=== PATIENT | female | born 1995 | race Caucasian/White ===

== ENCOUNTER 2018-03-05 15:47 | Emergency (ER) | payer BC ==
[2018-03-05 15:58] VITALS: BP 129/69
--- NOTE | 2018-03-05 17:31 | ER Document Report ---
HPI - HPI Patient complains to provider of: UTI Time Seen by Provider: 03/05/18 17:19 Onset: Other - 3 days Quality of pain: Burning Pain Level: 4 Context: Patient presents complaining of urinary frequency, dysuria and urgency. Patient is concerned she has a UTI. Patient denies any vomiting, fever or back pain. No concern for STI. Associated Symptoms: Other - Dysuria. denies: Fever Exacerbated by: Denies Relieved by: Denies Similar symptoms previously: Yes Recently seen / treated by doctor: No - ROS ROS below otherwise negative: Yes Systems Reviewed and Negative: Yes All other systems reviewed and negative - CONSTITUTIONAL Constitutional: DENIES: Fever, Chills - GASTROINTESTINAL Gastrointestinal: DENIES: Abdominal Pain, Nausea, Patient vomiting - URINARY Urinary: REPORTS: Dysuria, Urgency, Frequency - REPRODUCTIVE Reproductive: DENIES: : - MUSCULOSKELETAL Musculoskeletal: DENIES: Back Pain - DERM Skin Color: Normal Skin Problems: None Past Medical History - General Information source: Patient - Social History Smoking Status: Never Smoker Frequency of alcohol use: None Drug Abuse: None Occupation: Daycare worker Family History: Reviewed & Not Pertinent - Medical History Medical History: Negative Past Surgical History: Reports: Hx Gynecologic Surgery Vertical Provider Document - CONSTITUTIONAL Agree With Documented VS: Yes Exam Limitations: No Limitations General Appearance: WD/WN, No Apparent Distress - INFECTION CONTROL TRAVEL OUTSIDE OF THE [place] IN LAST 30 DAYS: No - HEENT HEENT: Atraumatic, Normocephalic - NECK Neck: Normal Inspection - RESPIRATORY Respiratory: Breath Sounds Normal, No Respiratory Distress - CARDIOVASCULAR Cardiovascular: Regular Rate, Regular Rhythm - GI/ABDOMEN Gastrointestinal: Abdomen Soft, Abdomen Non-Tender, No Organomegaly - BACK Back: Normal Inspection. negative: CVA Tenderness-Right, CVA Tenderness-Left - MUSCULOSKELETAL/EXTREMETIES Musculoskeletal/Extremeties: [place] DELIA OLEA - NEURO Level of Consciousness: Awake, Alert, Appropriate Motor/Sensory: No Motor Deficit - DERM Integumentary: Warm, Dry, No Rash Course - Vital Signs Vital signs: Temp Pulse Resp BP Pulse Ox 97.9 F 62 18 129/69 H 99 03/05/18 15:57 03/05/18 15:57 03/05/18 15:57 03/05/18 15:57 03/05/18 15:57 Discharge - Discharge Clinical Impression: UTI (urinary tract infection) Qualifiers: Urinary tract infection type: site unspecified Hematuria presence: with hematuria Qualified Code(s): N39.0 - Urinary tract infection, site not specified Condition: Stable Disposition: HOME, SELF-CARE Instructions: Trimethoprim-Sulfa ([facility]), Urinary Anesthetic Agent ([facility]), Urinary Tract Infection ([facility]) Additional Instructions: Return immediately for any new or worsening symptoms Followup with your primary care provider, call tomorrow to make a followup appointment Prescriptions: Phenazopyridine HCl [Pyridium 200 mg Tablet] 200 mg PO TID #15 tablet Sulfamethoxazole/Trimethoprim [Bactrim Ds Tablet] 1 each PO BID #14 tablet Forms: Return to Work Referrals: [facility] [Provider Group] - Follow up as needed
[2018-03-05 17:52] LABS: APPEARANCE,URINE SLIGHTLY-CLOUDY; BILIRUBIN,URINE NEGATIVE (NEGATIVE); COLOR,URINE STRAW; GLUCOSE, URINE NEGATIVE (NEGATIVE); KETONES,URINE NEGATIVE (NEGATIVE); LEUKOCYTE ESTERASE,URINE MODERATE (NEGATIVE); NITRITE,URINE NEGATIVE (NEGATIVE); PROTEIN,URINE NEGATIVE (NEGATIVE); URINE SPECIFIC GRAVITY 1.004; UROBILINOGEN,URINE NEGATIVE mg/dL (<2.0)
[2018-03-05] MEDS ORDERED: SULFAMETHOXAZOLE/TRIMETHOPRIM 800-160 MG TABLET PO ONE (17:53)
[2018-03-05] MEDS ORDERED: PHENAZOPYRIDINE HCL 200 MG TABLET PO ONE (17:53)
== END 2018-03-05 18:17 | disposition home or self-care (01) ==
LOC: ER 15:47
DX: N39.0 Urinary tract infection, site not specified (principal)
CPT/HCPCS: 99283; 87086; 87088; 81001; 87186; J3490

== ENCOUNTER 2019-04-03 16:22 | Emergency (ER) | payer BC ==
--- NOTE | 2019-04-03 18:25 | ER Document Report ---
ED Medical Screen (RME) - General Chief Complaint: Pain With Urination Stated Complaint: PAINFUL URINATION,URGENCY Time Seen by Provider: 04/03/19 18:08 Notes: HPI: 23-year-old female presenting with 3 to 4 weeks of dysuria. Has had occasional chills no definite fever. Occasional nausea no definite vomiting. Patient used a telemedicine physician and was placed on antibiotics 3 weeks ago. States symptoms did not improve, believe that she might of had a yeast infection using [id number] antifungal without improvement. Still with some dysuria. Denies pelvic pain. States did have some abnormal vaginal bleeding last week no bleeding currently I have greeted and performed a rapid initial assessment of this patient. A comprehensive ED assessment and evaluation of the patient, analysis of test results and completion of the medical decision making process will be conducted by additional ED providers PHYSICAL EXAMINATION: GENERAL: Well-appearing, well-nourished and in no acute distress. HEAD: Atraumatic, normocephalic. EYES: sclera anicteric, conjunctiva are normal. ENT: Moist mucous membranes. NECK: Normal range of motion LUNGS: Normal work of breathing, clear to auscultation HEART: 2+ radial pulses bilaterally, regular rate and rhythm ABD: limited by positioning for exam in triage. EXTREMITIES: no pitting or edema. No cyanosis. NEUROLOGICAL: No focal neurological deficits. Moves all extremities spontaneously and on command. PSYCH: Normal mood, normal affect. SKIN: Warm, Dry, normal turgor, no rashes or lesions noted. TRAVEL OUTSIDE OF THE [place] IN LAST 30 DAYS: No - Related Data Allergies/Adverse Reactions: amoxicillin Allergy (Verified 03/05/18 15:50) Past Medical History - Social History Frequency of alcohol use: None Drug Abuse: None Renal/ Medical History: Denies: Hx Peritoneal Dialysis Past Surgical History: Reports: Hx Gynecologic Surgery Physical Exam - Vital signs Vitals: Temp Pulse Resp BP Pulse Ox 98.4 F 58 L 16 126/65 H 99 04/03/19 17:21 04/03/19 17:21 04/03/19 17:21 04/03/19 17:21 04/03/19 17:21 Course - Vital Signs Vital signs: Temp Pulse Resp BP Pulse Ox 98.4 F 58 L 16 126/65 H 99 04/03/19 17:21 04/03/19 17:21 04/03/19 17:21 04/03/19 17:21 04/03/19 17:21
[2019-04-03 19:10] LABS: APPEARANCE,URINE CLEAR; BILIRUBIN,URINE NEGATIVE (NEGATIVE); COLOR,URINE YELLOW; GLUCOSE, URINE NEGATIVE (NEGATIVE); KETONES,URINE NEGATIVE (NEGATIVE); LEUKOCYTE ESTERASE,URINE MODERATE (NEGATIVE); NITRITE,URINE NEGATIVE (NEGATIVE); PROTEIN,URINE NEGATIVE (NEGATIVE); URINE SPECIFIC GRAVITY 1.016; UROBILINOGEN,URINE NEGATIVE mg/dL (<2.0)
[2019-04-03] MEDS ORDERED: CIPROFLOXACIN HCL 500 MG TABLET PO ONE (19:32)
--- NOTE | 2019-04-03 19:35 | ER Document Report ---
HPI - HPI Time Seen by Provider: 04/03/19 18:08 Pain Level: 0 Notes: Please see RME note for history and physical. 23-year-old female with urinary symptoms over the last month and finished a course of antibiotics. Denies vaginal discharge. Urine shows probable UTI, she does not know the name of the antibiotic she was on previously will place her on Cipro at this time add urine culture, have her follow-up with PCP - CONSTITUTIONAL Constitutional: REPORTS: Chills. DENIES: Fever - URINARY Urinary: REPORTS: Urgency - REPRODUCTIVE Reproductive: DENIES: : Past Medical History - Social History Smoking Status: Never Smoker Frequency of alcohol use: None Drug Abuse: None Family History: Reviewed & Not Pertinent Patient has suicidal ideation: No Patient has homicidal ideation: No Renal/ Medical History: Denies: Hx Peritoneal Dialysis Past Surgical History: Reports: Hx Gynecologic Surgery Vertical Provider Document - INFECTION CONTROL TRAVEL OUTSIDE OF THE [place] IN LAST 30 DAYS: No Course - Vital Signs Vital signs: Temp Pulse Resp BP Pulse Ox 98.4 F 58 L 16 126/65 H 99 04/03/19 17:21 04/03/19 17:21 04/03/19 17:21 04/03/19 17:21 04/03/19 17:21 - Laboratory Laboratory results interpreted by me: 04/03/19 18:30 Ur Leukocyte Esterase MODERATE H Discharge - Discharge Clinical Impression: UTI (urinary tract infection) Qualifiers: Urinary tract infection type: acute cystitis Hematuria presence: without hematuria Qualified Code(s): N30.00 - Acute cystitis without hematuria Condition: Stable Disposition: HOME, SELF-CARE Additional Instructions: Take the antibiotics as prescribed. Urine result suggests a urinary infection that perhaps was not completely treated. Urine culture has been added to ensure that you are on the correct antibiotic this time. Follow-up closely with her primary care provider for reevaluation Prescriptions: Ciprofloxacin HCl [Cipro 500 mg Tablet] 500 mg PO BID #20 tablet Phenazopyridine HCl [Pyridium 100 Mg Tablet] 100 mg PO TID #9 tablet Referrals: LISA BURNHAM MD [ACTIVE STAFF] - Follow up as needed
[2019-04-03 20:42] VITALS: BP 129/71
== END 2019-04-03 20:42 | disposition home or self-care (01) ==
LOC: ER 16:22
DX: N30.00 Acute cystitis without hematuria (principal); R68.83 Chills (without fever); R39.15 Urgency of urination
CPT/HCPCS: 81001; 81025; 87086; 87088; 99283

== ENCOUNTER 2019-06-06 13:57 | Emergency (ER) | payer SELFPAY ==
[2019-06-06 14:06] VITALS: BP 145/66
--- NOTE | 2019-06-06 14:14 | ER Document Report ---
HPI - HPI Patient complains to provider of: uti Onset/Duration: Gradual Quality of pain: Burning Pain Level: 1 Context: Patient presents complaining of frequency and dysuria for the past 4 days. Patient denies any fever, nausea vomiting or back pain. Patient denies any abdominal discomfort. Patient does state that she had recently been treated for an STD and prior to her symptoms started she did have intercourse with the person that she suspects may have given her gonorrhea. Patient would like to be screened again for this infection. Associated Symptoms: Other - Dysuria, frequency. denies: Fever, Nausea, Vomiting Exacerbated by: Denies Relieved by: Denies Similar symptoms previously: Yes Recently seen / treated by doctor: No - ROS ROS below otherwise negative: Yes Systems Reviewed and Negative: Yes All other systems reviewed and negative - CONSTITUTIONAL Constitutional: DENIES: Fever, Chills - RESPIRATORY Respiratory: DENIES: Coughing - GASTROINTESTINAL Gastrointestinal: DENIES: Abdominal Pain, Nausea - URINARY Urinary: REPORTS: Dysuria, Frequency - REPRODUCTIVE Reproductive: DENIES: :, Abnormal bleeding / discharge - MUSCULOSKELETAL Musculoskeletal: DENIES: Back Pain - DERM Skin Color: Normal Skin Problems: None Past Medical History - General Information source: Patient - Social History Smoking Status: Never Smoker Frequency of alcohol use: Occasional Drug Abuse: None Occupation: Design Supervisor Family History: Reviewed & Not Pertinent - Medical History Medical History: Negative Renal/ Medical History: Denies: Hx Peritoneal Dialysis Past Surgical History: Reports: Hx Gynecologic Surgery Vertical Provider Document - CONSTITUTIONAL Agree With Documented VS: Yes Exam Limitations: No Limitations General Appearance: WD/WN, No Apparent Distress - INFECTION CONTROL TRAVEL OUTSIDE OF THE [place] IN LAST 30 DAYS: No - HEENT HEENT: Atraumatic, Normocephalic - NECK Neck: Normal Inspection, Supple - RESPIRATORY Respiratory: Breath Sounds Normal, No Respiratory Distress - CARDIOVASCULAR Cardiovascular: Regular Rate, Regular Rhythm - GI/ABDOMEN Gastrointestinal: Abdomen Soft, Abdomen Non-Tender - BACK Back: Normal Inspection. negative: CVA Tenderness-Right, CVA Tenderness-Left - MUSCULOSKELETAL/EXTREMETIES Musculoskeletal/Extremeties: MAEW, FROM - NEURO Level of Consciousness: Awake, Alert, Appropriate Motor/Sensory: No Motor Deficit - DERM Integumentary: Warm, Dry, No Rash Course - Re-evaluation Re-evalutation: 06/06/19 15:27 Will treat for UTI, patient empirically treated for STD at this time. No concern for pyelonephritis or sepsis at this time. Good return precautions discussed with patient. Patient verbalized understanding is agreeable with discharge plan of care. - Vital Signs Vital signs: Temp Pulse Resp BP Pulse Ox 99.2 F 70 18 145/66 H 98 06/06/19 14:05 06/06/19 14:05 06/06/19 14:05 06/06/19 14:05 06/06/19 14:05 - Laboratory Laboratory results interpreted by me: 06/06/19 15:26 Labs- Entire Visit 06/06/19 14:20 Urine Color ANUSHA Urine Appearance CLEAR Urine pH 6.0 Ur Specific [place] 1.005 Urine Protein NEGATIVE Urine Glucose (UA) NEGATIVE Urine Ketones NEGATIVE Urine Blood MODERATE H Urine Nitrite POSITIVE H Urine Bilirubin NEGATIVE Urine Urobilinogen 4.0 H Ur Leukocyte Esterase NEGATIVE Urine WBC (Auto) 2 Urine RBC (Auto) 6 Squamous Epi Cells Auto <1 Urine Mucus (Auto) RARE Urine Ascorbic Acid NEGATIVE Discharge - Discharge Clinical Impression: Concern about STD in female without diagnosis UTI (urinary tract infection) Qualifiers: Urinary tract infection type: site unspecified Hematuria presence: with hematuria Qualified Code(s): N39.0 - Urinary tract infection, site not specified Condition: Stable Disposition: HOME, SELF-CARE Instructions: Trimethoprim-Sulfa ([facility]), Urinary Anesthetic Agent ([facility]), Urinary Tract Infection ([facility]) Additional Instructions: Return immediately for any new or worsening symptoms Followup with your primary care provider, call tomorrow to make a followup appointment Prescriptions: Sulfamethoxazole/Trimethoprim [Bactrim Ds Tablet] 1 each PO BID #14 tablet Phenazopyridine HCl [Pyridium 200 mg Tablet] 200 mg PO TID #15 tablet Referrals: [facility] [Provider Group] - Follow up as needed [facility] [Provider Group] - Follow up as needed
[2019-06-06] MEDS ORDERED: AZITHROMYCIN 250 MG TABLET PO ONE (14:18)
[2019-06-06] MEDS ORDERED: CEFTRIAXONE INJ 250 MG VIAL IM ONE (14:18)
[2019-06-06] MEDS ORDERED: LIDOCAINE 1% INJ (10 MG/ML) 10 ML MDV INJ ONE (14:18)
[2019-06-06 14:43] LABS: APPEARANCE,URINE CLEAR; BILIRUBIN,URINE NEGATIVE (NEGATIVE); COLOR,URINE AMBER; GLUCOSE, URINE NEGATIVE (NEGATIVE); KETONES,URINE NEGATIVE (NEGATIVE); LEUKOCYTE ESTERASE,URINE NEGATIVE (NEGATIVE); NITRITE,URINE POSITIVE (NEGATIVE); PROTEIN,URINE NEGATIVE (NEGATIVE); URINE SPECIFIC GRAVITY 1.005
[2019-06-06 16:11] LABS: CHLAM PCR DETECTED (NOT DETECT)
== END 2019-06-06 15:41 | disposition home or self-care (01) ==
LOC: ER 13:57
DX: N39.0 Urinary tract infection, site not specified (principal); R31.9 Hematuria, unspecified; Z20.2 Contact with and (suspected) exposure to infections with a predominantly sexual mode of transmission
CPT/HCPCS: 99283; 96372; 87086; 81001; 87491; 87591; J0696

== ENCOUNTER 2019-11-28 16:10 | Emergency (ER) | payer BC ==
[2019-11-28 16:23] VITALS: BP 127/75
--- NOTE | 2019-11-28 16:51 | ER Document Report ---
HPI - HPI Time Seen by Provider: 11/28/19 16:33 Pain Level: Denies Notes: 24-year-old female patient presents the emergency department for evaluation of a rash. Patient reports the rash has been present for 2 weeks. She states it started on her shoulder. She states that then spread to her entire body. Sometimes it is itchy. It is not painful. She has never had this rash before. She denies the use of any new products. - ROS Systems Reviewed and Negative: Yes All other systems reviewed and negative - REPRODUCTIVE Reproductive: DENIES: : - DERM Skin Problems: Rash Past Medical History - Social History Smoking Status: Never Smoker Chew tobacco use (# tins/day): No Frequency of alcohol use: Occasional Drug Abuse: None Family History: Reviewed & Not Pertinent Renal/ Medical History: Denies: Hx Peritoneal Dialysis Past Surgical History: Reports: Hx Gynecologic Surgery Vertical Provider Document - CONSTITUTIONAL Notes: PHYSICAL EXAMINATION: GENERAL: Well-appearing, well-nourished and in no acute distress. HEAD: Atraumatic, normocephalic. EYES: Pupils equal round extraocular movements intact, conjunctiva are normal. ENT: Nares patent NECK: Normal range of motion LUNGS: No respiratory distress Musculoskeletal: Normal range of motion NEUROLOGICAL: Normal speech, normal gait. PSYCH: Normal mood, normal affect. SKIN: Red scaly spots noted to patient's bilateral upper and lower extremities, torso. Scaly edges, jc tree-like pattern on posterior torso. No herald patch. - INFECTION CONTROL TRAVEL OUTSIDE OF THE [place] IN LAST 30 DAYS: No Course - Re-evaluation Re-evalutation: Rash most consistent with pityriasis rosacea although there is no definitive heralds patch. Will start patient on steroids and refer to dermatology. - Vital Signs Vital signs: Temp Pulse Resp BP Pulse Ox 98.2 F 69 16 127/75 H 99 11/28/19 16:22 11/28/19 16:22 11/28/19 16:22 11/28/19 16:22 11/28/19 16:22 Discharge - Discharge Clinical Impression: Rash and nonspecific skin eruption Condition: Stable Disposition: HOME, SELF-CARE Additional Instructions: Please follow-up with dermatology. If you are unable to get into see them call Dr. Rosales's office and set up an appointment. Let them know that you need to see a administrative support assoc per the ERs recommendation. The rash has many characteristics of pityriasis rosacea however it does not have all of the classic findings. We will trial you on a dose of steroids. Make sure you are taking lukewarm showers, do not use soap and if any area becomes particularly bothersome to you we may apply topical Aquaphor. You can purchase this [id number]. Return if any new or worsening symptoms or any lip swelling or difficulty swallowing. Prescriptions: Prednisone 10 mg PO ASDIR PRN 12 Days #1 [email or web address] PRN Reason: Referrals: NILA ROSALES MD [COMMUNITY BASED STAFF] - Follow up as needed GREGORY WEBBER DO [ACTIVE STAFF] - Follow up as needed
== END 2019-11-28 17:00 | disposition home or self-care (01) ==
LOC: ER 16:10
DX: R21 Rash and other nonspecific skin eruption (principal)
CPT/HCPCS: 99283